=== PATIENT | female | born 1965 | race Caucasian/White ===

== ENCOUNTER 2023-04-13 15:25 | Emergency (ER) | payer BC, SELFPAY ==
[2023-04-13] VITALS (27 sets, daily range): BP systolic 131–186; BP diastolic 83–113; PULSE 77–111; RESP 13–28; TEMP 36.7; O2SAT 91–98; BMI 32.5
--- NOTE | 2023-04-13 15:32 | ECG_ITS ---
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 Measurements Intervals [place] Rate: 110 P: 41 SD: 179 QRS: 2 QRSD: 98 T: 14 QT: 332 QTc: 450 Interpretive Statements SINUS TACHYCARDIA MINIMAL ST DEPRESSION [0.025+ mV ST DEPRESSION] No previous ECG available for comparison Electronically Signed On 04-14-2023 16:17:34 CDT by Akhil Bridges M.D. [id number]
[2023-04-13 15:46] LABS: Basophils # 0.1 10^3/uL (0.0-0.1); Basophils % 0.5 %; Eosinophils # 0.5 10^3/uL (0.0-0.8); Eosinophils % 3.9 %; Hematocrit 43.4 % (36-47); Lymphocytes # 3.1 10^3/uL (0.8-4.8); Lymphocytes % 26.8 %; Mean Corpuscular HGB Conc 34.6 g/dL (30-55); Mean Corpuscular Hemoglobin 32.1 pg (27-33); Mean Corpuscular Volume 92.9 fl (85-98); Mean Platelet Volume 9.9 fL (7.4-10.4); Monocytes # 0.8 10^3/uL (0.2-0.9); Monocytes % 7.2 %; Neutrophils # 7.02 10^3/uL (1.8-7.7); Neutrophils % 61.1 %; Nucleated Red Blood Cells % 0 %; Platelet Count 286 10^3/cmm (157-399); Red Blood Count 4.67 10^6/uL (3.85-5.65); Red Cell Distribution Width 12.4 % (12.1-15.1); White Blood Count 11.51 10^3/uL (3.29-11.43)
[2023-04-13] MEDS: aspirin 81 mg Chew Tablet 324 MG PO (15:47)
--- NOTE | 2023-04-13 15:58 | W.ED.CHESTPA ---
Documented by User: Ramo Bonilla DO 04/14/23 06:25 HPI - Chest Pain General: Chief Complaint: Chest Pain Stated Complaint: chest pain short breath Time Seen by Provider: 04/13/23 15:32 Source: patient Mode of arrival: ambulatory History of Present Illness: 56-year-old female presents emergency room complaining of chest pain rating into her shoulder. Is worse today she had some yesterday as well as not is anything exacerbates or relieves she is not diabetic not a smoker no known history of coronary artery disease. No fever sweats chills no cough or shortness of breath. MD complaint: chest pain Onset (ago): day(s) Timing of current episode: episodic Prior episodes: Yes Onset: during rest Pain location: left chest Pain radiation: left shoulder Severity: moderate Quality: sharp Relieving factors: nothing Exacerbating factors: nothing Associated symptoms: Deny abdominal pain, diaphoresis, dyspnea, fever(s), leg edema, nausea, palpitations, sense of impending doom, syncope or vomiting Review of Systems Const: Denies: fever(s), chills, fatigue, malaise or diaphoresis ENMT: Denies: throat pain, ear or mastoid pain, nasal discharge or nasal congestion Card: Reports: chest pain; Denies: palpitations, irregular heart rhythm, edema or syncope Resp: Denies: dyspnea, productive cough or non-productive cough GI: Denies: abdominal pain, nausea or vomiting : Denies: flank pain, difficulty voiding, dysuria, urinary frequency or urinary urgency Skin/Breast: Denies: rash or pruritus PFS ED PFSH: Medical History No pertinent past medical history Surgical History No pertinent past surgical history Social History Smoking and tobacco status: former smoker Physical Exam Const: GENERAL APPEARANCE: cooperative and comfortable ORIENTATION/CONSCIOUSNESS: Yes awake, Yes oriented to person, Yes oriented to place and Yes oriented to time HENMT: COMMON NORMALS: normocephalic, atraumatic and hearing grossly normal bilaterally HEAD & SCALP: normocephalic and atraumatic Resp: COMMON NORMALS: normal respiratory effort, No retractions, No use of accessory muscles and clear to auscultation bilaterally AUSCULTATION: clear to auscultation bilaterally Cardio: COMMON NORMALS: regular rate, regular rhythm and No murmurs present (Cardio) RATE: regular rate RHYTHM: regular rhythm GI: COMMON NORMALS: Soft to palpation and No hepatosplenomegaly present AUSCULTATION: Yes normoactive bowel sounds PALPATION: Yes Soft to palpation, No Tenderness to palpation present (GI), No Guarding due to palpation present (GI) and Yes No hepatosplenomegaly present Extremity: COMMON NORMALS: normal to inspection, capillary refill normal, no clubbing, cyanosis or edema, no calf tenderness and no pedal edema Neuro: SENSORIUM/ORIENTATION: Yes oriented to person, Yes oriented to place and Yes oriented to time Skin: COMMON NORMALS: no rashes or lesions noted GENERAL SKIN EXAM: no rashes or lesions noted Course Vital Signs: Vital signs: Vital Signs Temperature 98.1 F 04/13/23 15:34 Pulse Rate 82 04/13/23 19:05 Respiratory Rate 15 04/13/23 19:05 Blood Pressure 139/84 04/13/23 19:15 Pulse Oximetry 96 04/13/23 19:05 Oxygen Delivery Me thod Room Air 04/13/23 18:29 MDM - Chest Pain Medical Decision Making Initial EKG did not show any acute ST elevation. Care signed out to Dr. Minor at change of shift. See final notes for diagnosis and disposition. 58-year-old female checked out to me by Dr. Bonilla at shift change. This patient is pain-free currently. She has been experiencing some chest discomfort. Her vitals now are improved. She was initially quite hypertensive. White blood cell count is 11.5. Hemoglobin 15. Potassium is 3.4. Troponin delta at 2 hours is 1.8. BNP is 120. She is not tachycardic. She is not hypoxic. Chest x-ray is negative. Medical Records I reviewed the patient's medical records. Lab Data I reviewed the patient's lab results. 04/13/23 15:40 04/13/23 15:40 Radiology Impressions Chest X-Ray 04/13/23 15:59 IMPRESSION: No acute findings. Laboratory Results WBC 11.51 10^3/uL (3.29-11.43) H 04/13/23 15:40 RBC 4.67 10^6/uL (3.85-5.65) 04/13/23 15:40 Hgb 15.00 g/dL (11.27-16.99) 04/13/23 15:40 Hct 43.4 % (36-47) 04/13/23 15:40 MCV 92.9 fl (85-98) 04/13/23 15:40 MCH 32.1 pg (27-33) 04/13/23 15:40 MCHC 34.6 g/dL (30-55) 04/13/23 15:40 RDW 12.4 % (12.1-15.1) 04/13/23 15:40 Plt Count 286 10^3/cmm (157-399) 04/13/23 15:40 MPV 9.9 fL (7.4-10.4) 04/13/23 15:40 Neut % (Auto) 61.1 % 04/13/23 15:40 Lymph % (Auto) 26.8 % 04/13/23 15:40 [place] % (Auto) 7.2 % 04/13/23 15:40 Eos % (Auto) 3.9 % 04/13/23 15:40 Baso % (Auto) 0.5 % 04/13/23 15:40 Neut # (Auto) 7.02 10^3/uL (1.8-7.7) 04/13/23 15:40 Lymph # (Auto) 3.1 10^3/uL (0.8-4.8) 04/13/23 15:40 [place] # (Auto) 0.8 10^3/uL (0.2-0.9) 04/13/23 15:40 Eos # (Auto) 0.5 10^3/uL (0.0-0.8) 04/13/23 15:40 Baso # (Auto) 0.1 10^3/uL (0.0-0.1) 04/13/23 15:40 Nucleated RBC % (auto) 0 % 04/13/23 15:40 Nucleated RBCs # 0.0 /100WBC 04/13/23 15:40 Sodium 139 mmol/L (136-145) 04/13/23 15:40 Potassium 3.4 mmol/L (3.5-5.1) L 04/13/23 15:40 Chloride 103 mmol/L (98-107) 04/13/23 15:40 Carbon Dioxide 25 mmol/L (22-29) 04/13/23 15:40 Anion Gap 14.4 (5-19) 04/13/23 15:40 BUN 16 mg/dL (6-20) 04/13/23 15:40 Creatinine 0.8 mg/dL (0.5-0.9) 04/13/23 15:40 GFR Calculation 73.7 mL/min (90-130) L 04/13/23 15:40 Glucose 149 mg/dL (65-115) H 04/13/23 15:40 Calculated Osmolality 292 mOsm/kg (285-295) 04/13/23 15:40 Calcium 8.9 mg/dL (8.5-10.5) 04/13/23 15:40 Total Bilirubin 0.3 mg/dL (0.15-1.2) 04/13/23 15:40 AST 18 U/L (0-32) 04/13/23 15:40 ALT 17 U/L (0-33) 04/13/23 15:40 Alkaline Phosphatase 107 U/L (35-105) H 04/13/23 15:40 Troponin T Baseline 8 ng/L (0-10) 04/13/23 15:40 Troponin T 120 Minute 9.82 ng/L (0-10) 04/13/23 17:45 Delta Troponin T 1.82 ABS# (0-10) 04/13/23 17:45 NT-Pro-B Natriuret Pep 120 pg/mL (0-125) 04/13/23 15:40 Total Protein 6.9 g/dL (6.6-8.7) 04/13/23 15:40 Albumin 4.2 g/dL (3.5-5.2) 04/13/23 15:40 Globulin 2.7 g/dL (1.3-4.6) 04/13/23 15:40 Discharge Plan Discharge Patient Disposition: Home Clinical Impression: Chest pain Condition: Stable Prescriptions: New ketorolac 10 mg tablet 10 mg PO TID PRN (Reason: pain) Qty: 10 0RF No Action lisinopril 20 mg tablet 20 mg PO DAILY hydrochlorothiazide 25 mg tablet 25 mg PO DAILY Discharge Orders: Discharge ED (Routine); Ordered 04/13/23 Ordered By: Ata Minor Referrals: Suhas Mahmood MD [Primary Care Provider] - 1-3 days Patient Instructions: Chest Pain (ED) Activity Restrictions/Additional Instructions: Medication as directed. Return for worsening pain despite treatment, worsening shortness of breath, vomiting, other concerning symptoms. See your doctor this week. Further outpatient testing may be needed. Coding Level of Care Code ED Stud Master/Mistress for Chg Fwd Documented by User: Ata Minor DO 04/13/23 19:13 HPI - Chest Pain General: Chief Complaint: Chest Pain Stated Complaint: chest pain short breath Time Seen by Provider: 04/13/23 15:32 PFSH ED PFSH: Medical History No pertinent past medical history Surgical History No pertinent past surgical history Social History Smoking and tobacco status: former smoker Course Vital Signs: Vital signs: Vital Signs Temperature 98.1 F 04/13/23 15:34 Pulse Rate 82 04/13/23 19:05 Respiratory Rate 15 04/13/23 19:05 Blood Pressure 139/84 04/13/23 19:15 Pulse Oximetry 96 04/13/23 19:05 Oxygen Delivery Me thod Room Air 04/13/23 18:29 MDM - Chest Pain Medical Decision Making Care signed out to Dr. Minor at change of shift. See final notes for diagnosis and disposition. 58-year-old female checked out to me by Dr. Bonilla at shift change. This patient is pain-free currently. She has been experiencing some chest discomfort. Her vitals now are improved. She was initially quite hypertensive. White blood cell count is 11.5. Hemoglobin 15. Potassium is 3.4. Troponin delta at 2 hours is 1.8. BNP is 120. She is not tachycardic. She is not hypoxic. Chest x-ray is negative. Lab Data 04/13/23 15:40 04/13/23 15:40 Radiology Impressions Chest X-Ray 04/13/23 15:59 IMPRESSION: No acute findings. Laboratory Results WBC 11.51 10^3/uL (3.29-11.43) H 04/13/23 15:40 RBC 4.67 10^6/uL (3.85-5.65) 04/13/23 15:40 Hgb 15.00 g/dL (11.27-16.99) 04/13/23 15:40 Hct 43.4 % (36-47) 04/13/23 15:40 MCV 92.9 fl (85-98) 04/13/23 15:40 MCH 32.1 pg (27-33) 04/13/23 15:40 MCHC 34.6 g/dL (30-55) 04/13/23 15:40 RDW 12.4 % (12.1-15.1) 04/13/23 15:40 Plt Count 286 10^3/cmm (157-399) 04/13/23 15:40 MPV 9.9 fL (7.4-10.4) 04/13/23 15:40 Neut % (Auto) 61.1 % 04/13/23 15:40 Lymph % (Auto) 26.8 % 04/13/23 15:40 [place] % (Auto) 7.2 % 04/13/23 15:40 Eos % (Auto) 3.9 % 04/13/23 15:40 Baso % (Auto) 0.5 % 04/13/23 15:40 Neut # (Auto) 7.02 10^3/uL (1.8-7.7) 04/13/23 15:40 Lymph # (Auto) 3.1 10^3/uL (0.8-4.8) 04/13/23 15:40 [place] # (Auto) 0.8 10^3/uL (0.2-0.9) 04/13/23 15:40 Eos # (Auto) 0.5 10^3/uL (0.0-0.8) 04/13/23 15:40 Baso # (Auto) 0.1 10^3/uL (0.0-0.1) 04/13/23 15:40 Nucleated RBC % (auto) 0 % 04/13/23 15:40 Nucleated RBCs # 0.0 /100WBC 04/13/23 15:40 Sodium 139 mmol/L (136-145) 04/13/23 15:40 Potassium 3.4 mmol/L (3.5-5.1) L 04/13/23 15:40 Chloride 103 mmol/L (98-107) 04/13/23 15:40 Carbon Dioxide 25 mmol/L (22-29) 04/13/23 15:40 Anion Gap 14.4 (5-19) 04/13/23 15:40 BUN 16 mg/dL (6-20) 04/13/23 15:40 Creatinine 0.8 mg/dL (0.5-0.9) 04/13/23 15:40 GFR Calculation 73.7 mL/min (90-130) L 04/13/23 15:40 Glucose 149 mg/dL (65-115) H 04/13/23 15:40 Calculated Osmolality 292 mOsm/kg (285-295) 04/13/23 15:40 Calcium 8.9 mg/dL (8.5-10.5) 04/13/23 15:40 Total Bilirubin 0.3 mg/dL (0.15-1.2) 04/13/23 15:40 AST 18 U/L (0-32) 04/13/23 15:40 ALT 17 U/L (0-33) 04/13/23 15:40 Alkaline Phosphatase 107 U/L (35-105) H 04/13/23 15:40 Troponin T Baseline 8 ng/L (0-10) 04/13/23 15:40 Troponin T 120 Minute 9.82 ng/L (0-10) 04/13/23 17:45 Delta Troponin T 1.82 ABS# (0-10) 04/13/23 17:45 NT-Pro-B Natriuret Pep 120 pg/mL (0-125) 04/13/23 15:40 Total Protein 6.9 g/dL (6.6-8.7) 04/13/23 15:40 Albumin 4.2 g/dL (3.5-5.2) 04/13/23 15:40 Globulin 2.7 g/dL (1.3-4.6) 04/13/23 15:40 All radiology interpretation(s) finalized by discharge Discharge Plan Discharge Patient Disposition: Home Clinical Impression: Chest pain Condition: Stable Prescriptions: New ketorolac 10 mg tablet 10 mg PO TID PRN (Reason: pain) Qty: 10 0RF No Action lisinopril 20 mg tablet 20 mg PO DAILY hydrochlorothiazide 25 mg tablet 25 mg PO DAILY Discharge Orders: Discharge ED (Routine); Ordered 04/13/23 Ordered By: Ata Minor Referrals: Suhas Mahmood MD [Primary Care Provider] - 1-3 days Patient Instructions: Chest Pain (ED) Activity Restrictions/Additional Instructions: Medication as directed. Return for worsening pain despite treatment, worsening shortness of breath, vomiting, other concerning symptoms. See your doctor this week. Further outpatient testing may be needed. Coding Level of Care Code ED Stud Master/Mistress for Arianne Espitia
--- NOTE | 2023-04-13 15:59 | XRR_ITS ---
PROCEDURE INFORMATION: Exam: XR Chest Exam date and time: 04/13/2023 4:06 PM Age: 58 years old Clinical indication: Pain; Chest pressure; Additional info: Dyspnea/cough TECHNIQUE: Imaging protocol: Radiologic exam of the chest. Views: 1 view. COMPARISON: No relevant prior studies available. FINDINGS: Lungs: Unremarkable. No consolidation. Pleural spaces: Unremarkable. No pleural effusion. No pneumothorax. Heart/Mediastinum: Unremarkable. No cardiomegaly. Bones/joints: Unremarkable. XR/XR chest 1V portable 90004 IMPRESSION: No acute findings.
[2023-04-13 16:09] LABS: Alanine Aminotransferase 17 U/L (0-33); Albumin Level 4.2 g/dL (3.5-5.2); Alkaline Phosphatase 107 U/L (35-105); Anion Gap 14.4 (5-19); Aspartate Amino Transferase 18 U/L (0-32); Blood Urea Nitrogen 16 mg/dL (6-20); Calcium 8.9 mg/dL (8.5-10.5); Carbon Dioxide 25 mmol/L (22-29); Chloride 103 mmol/L (98-107); Globulin 2.7 g/dL (1.3-4.6); Glomerular Filtration Rate 73.7 mL/min (90-130); Glucose 149 mg/dL (65-115); Osmolality Calculated 292 mOsm/kg (285-295); Potassium 3.4 mmol/L (3.5-5.1); Sodium 139 mmol/L (136-145); Total Bilirubin 0.3 mg/dL (0.15-1.2); Total Protein 6.9 g/dL (6.6-8.7); Troponin(5th) Baseline 8 ng/L (0-10)
[2023-04-13 16:26] LABS: NT Pro B Type Natriuretic Pept 120 pg/mL (0-125)
--- NOTE | 2023-04-13 17:32 | ECG_ITS ---
[facility] Test Date: 2023-04-13 Pat Name: Codie Lainez Department: Room: Gender: Female Licensed Psychologist: : 1965 Requested By: Ramo Davis Order Number: [id number] Jana MD: Akhil Bridges M.D. Measurements Intervals [place] Rate: 81 P: 53 [place]: 200 QRS: 8 QRSD: 117 T: 28 QT: 372 QTc: 433 Interpretive Statements SINUS RHYTHM MODERATE INTRAVENTRICULAR CONDUCTION DELAY [110+ ms QRS DURATION] Compared to ECG 04/13/2023 15:31:37 Intraventricular conduction delay now present Sinus tachycardia no longer present ST (T wave) deviation no longer present Electronically Signed On 04-14-2023 16:19:51 CDT by Akhil Bridges M.D. [id number]
[2023-04-13 18:38] LABS: Troponin 5 2HR 9.82 ng/L (0-10); Troponin 5 2HR Delta 1.82 ABS# (0-10)
== END 2023-04-13 19:19 | disposition home or self-care (01) ==
PROVIDERS: Family Medicine; Emergency Provider Emergency Medicine; PCP Family Medicine
DX: R07.9 Chest pain, unspecified (principal); Z87.891 Personal history of nicotine dependence
CPT/HCPCS: 36415; 71045; 80053; 83880; 84484; 85025; 93005; 99285

== ENCOUNTER 2023-05-22 11:58 | Outpatient (CLI) | payer BC, SELFPAY ==
--- NOTE | 2023-05-22 | ECG_ITS ---
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 Interpretive Statements NAME OF STUDY: TREADMILL STRESS ECHOCARDIOGRAM INDICATION: [Chest Pain, ] EXERCISE DATA: The patient was exercised by Toni protocol. Baseline heart rate was 76beats per minute. Baseline blood pressure was 107/76 millimeters of mercury. Target heart rate was 138 beats per minute. Maximum heart rate achieved was 150, which was 108% of the target heart rate. Maximum blood pressure was 149/82 millimeters of mercury. Total exercise time was 5 minutes. Maximum METs achieved was 7. ELECTROCARDIOGRAM: BASELINE: Showed sinus rhythm, normal axis, no significant ST-T changes at the baseline noted. [] EXERCISE: At the peak exercise level, [] No significant ST-T changes suggestive of ischemia noted. [] RECOVERY: During the recovery period, heart rate dropped appropriately. No significant ST-T changes in the recovery suggestive of ischemia noted. [] CONCLUSION: 1. Exercise capacity is fair 2. Heart rate response was appropriate 3. Blood pressure response was appropriate 4. Symptoms not suggestive of ischemia. 5. Electrocardiogram portion of the stress test was not suggestive of ischemia. 6. Echocardiogram portion of stress test will be reported separately Electronically Signed On 05-24-2023 11:47:35 CDT by Akhil Bridges M.D. [id number]
--- NOTE | 2023-05-22 12:15 | USCV_ITS ---
Codie Lainez Age: 58 Gender: F : 1965 Exam Date: 05/22/2023 12:42 Ordering Phys: Trung Blank MD Technologist: Demetrius Frye Exam Location: [facility] [place] Indication: chest pain Rhythm: Sinus Patient History: HTN/FORMER SMOKER Cardiac Medications: HCTZ/ZEFERINO Medications in past 24 hours: NONE Contrast: Stress Results Protocol: Toni Total dose(mL): Exercise Duration (min:sec): 5:00 METS: 7.0 Resting HR: 76 Resting BP: 107 / 76 Peak HR: 150 Peak BP: 149 / 82 Max Predicted HR: 162 93 % Max Predicted HR Target HR: 138 Double Product: 77370 Stress Summary: Shortness of breath while on the treadmill that quickly resolved during recovery BP Response: normal Reason for Termination: target hr reached Cardiac Symptoms: none ECG Analysis Resting ECG: Normal in sinus rhythm with no ST T wave changes Stress ECG: Sinus tachycardia with no significant ST T wave changes Arrhythmia: None MEASUREMENTS (Male/Female) Normal Values FINDINGS Baseline echocardiogram showe normal LV systolic function with EF of 55-60%. No regional wall motion abnormalities seen. On stress imaging, no regional wall motion abnormalities seen. However images obtained 1-2 beats below target heart rate. This reduces with sensitivity of the stress test CONCLUSIONS 1. Stress echocardiogram portion of stress test not indicative of ischemia. However images obtained 1-2 beats below target heart rate. This reduces with sensitivity of the stress test. 2. EKG portion of stress test does not show evidence of ischemia. Akhil Bridges MD (Electronically Signed) Final Date: 24 May 2023 12:01 S
[2023-05-22 12:42] VITALS: BMI 33.6
== END 2023-05-22 11:59 | disposition home or self-care (01) ==
LOC: CDL 11:58
PROVIDERS: PCP Family Medicine; Visit Provider Family Medicine
DX: R07.9 Chest pain, unspecified (principal)
CPT/HCPCS: 93350